=== PATIENT | female | born 1970 | race Caucasian/White ===

== ENCOUNTER → 2017-05-13 | Outpatient (CLI) | payer OTHER ==
--- NOTE | 2017-05-14 13:47 | RADIOLOGY IMAGING REPORT ---
FACILITY: [facility] - [place] PATIENT NAME: BEA HOLDER : [id number] MR: [id number] V: [id number] EXAM DATE: ORDERING PHYSICIAN: NAZ DANIELS TECHNOLOGIST: Taisha Conley PROCEDURE:BILATERAL DIGITAL SCREENING MAMMOGRAM WITH CAD ASSISTED INTERPRETATION & 3D TOMOSYNTHESIS COMPARISON:04/16/16 & priors back to 07/28/12 INDICATIONS:SCREENING FINDINGS: Breast parenchyma is heterogeneously dense. There are no mammographic findings concerning for malignancy. There is no significant interval change. DIAGNOSTIC CATEGORY 1--NEGATIVE. RECOMMENDATIONS: ROUTINE MAMMOGRAM AND CLINICAL EVALUATION IN 1 YR IMPRESSION: BIRADS 1: Negative Dictated by: Gallo Carlton on 05/14/2017 at 8:38 Transcribed by: JAMEL on 05/14/2017 at 10:42 Approved by: Gallo Carlton on 05/14/2017 at 13:46 [facility]
== END ==
LOC: MAMO 00:38
PROVIDERS: ATTEND Nurse Practitioner Family
DX: Z12.31 Encounter for screening mammogram for malignant neoplasm of breast (principal)
CPT/HCPCS: 77063; 77067